=== PATIENT | female | born 1970 | race Caucasian/White ===

== ENCOUNTER 2017-06-21 03:53 | Outpatient (CLI) | payer MEDICARE ==
[~2017-06-21 03:53] MED LIST: ALBU8HFA PO; ALPR0.5T8 PO; ATOR10TA70 PO; IPRA3AMP IH; LEVO175T2 PO; LISI-600 PO; LITH300C PO; OMEP20TA5 PO; QUET-1 PO
== END 2017-06-21 23:59 | disposition home or self-care (01) ==
LOC: DIABETIC 03:53
PROVIDERS: ATTEND Nurse Practitioner Family
DX: E11.9 Type 2 diabetes mellitus without complications (principal); E66.01 Morbid (severe) obesity due to excess calories; J45.909 Unspecified asthma, uncomplicated; I10 Essential (primary) hypertension; J34.89 Other specified disorders of nose and nasal sinuses; J32.9 Chronic sinusitis, unspecified; M54.2 Cervicalgia; R41.0 Disorientation, unspecified; I49.9 Cardiac arrhythmia, unspecified; F31.9 Bipolar disorder, unspecified; R05 Cough; R50.9 Fever, unspecified; R11.0 Nausea; K76.89 Other specified diseases of liver; M54.9 Dorsalgia, unspecified; Z79.891 Long term (current) use of opiate analgesic
CPT/HCPCS: G0109

== ENCOUNTER 2017-08-30 00:14 | Outpatient (CLI) | payer MEDICARE | END 2017-08-30 23:59 | disposition home or self-care (01) | LOC: DIABETIC 00:14 | PROVIDERS: ATTEND Nurse Practitioner Family | DX: E11.9 Type 2 diabetes mellitus without complications (principal) | CPT/HCPCS: G0108 ==

== ENCOUNTER 2017-12-06 12:47 | Emergency (ER) | payer MEDICARE, OTHER ==
[~2017-12-06] VITALS: Ht 170.2 cm; Wt 146.8 kg
[~2017-12-06 12:47] MED LIST changes: +ADV50500 INH; +CODE120S2 PO; +METH4TAB81 PO
[2017-12-06] MEDS ORDERED: morphine 4 MG/ML inj SYRINge IV PRN (13:15)
[2017-12-06] MEDS ORDERED: albuterol 2.5 MG/3 ML nebule NEB ONE (13:15)
[2017-12-06] MEDS ORDERED: normal saline 1000ML IV soln IVB ONE (13:15)
[2017-12-06] MEDS ORDERED: ipratropium/albuterol 3ml nebule NEB ONE (13:15)
[2017-12-06] MEDS ORDERED: proCHLORperazine 10 MG/2 ml inj IV ONE (13:15)
[2017-12-06 13:32] LABS: BASOPHILS % (AUTO) 0.2 % (0-1); EOSINOPHILS # (AUTO) 0.2 X10'3 (0-0.9); HEMATOCRIT 38.5 % (35.0-45.0); HEMOGLOBIN 12.9 g/dl (12.0-16.0); LYMPHOCYTES # (AUTO) 2.1 X10'3 (1.1-4.8); LYMPHOCYTES % (AUTO) 25.4 % (21-51); MEAN CORPUSCULAR HEMOGLOBIN 28.2 PG (27.0-31.0); MEAN CORPUSCULAR HGB CONC 33.5 % (33.0-36.5); MEAN PLATELET VOLUME 8.7 FL (7.4-10.4); MONOCYTES # (AUTO) 0.4 X10'3 (0-0.9); MONOCYTES % (AUTO) 4.9 % (2-12); NEUTROPHILS # (AUTO) 5.6 X10'3 (1.8-7.7); NEUTROPHILS % (AUTO) 67.5 % (42-75); PLATELET COUNT 316 X10'3 (140-440); RED BLOOD COUNT 4.59 X10'6 (4.20-5.60); WHITE BLOOD COUNT 8.3 X10'3 (4.5-11.0)
[2017-12-06 13:47] LABS: ALANINE AMINOTRANSFERASE 51 U/L (12-78); ALBUMIN 3.4 G/DL (3.4-5.0); ALBUMIN/GLOBULIN RATIO 0.8 (1.1-1.5); ALKALINE PHOSPHATASE 81 IU/L (46-116); ANION GAP 15 (8-16); ASPARTATE AMINO TRANSFERASE 31 U/L (10-37); BILIRUBIN,TOTAL 0.2 MG/DL (0.1-1.0); BLOOD UREA NITROGEN 17 MG/DL (7-18); BUN/CREATININE RATIO 18.5 (6.6-38.0); CALCIUM 9.8 MG/DL (8.5-10.1); CHLORIDE 106 MMOL/L (99-107); CREATININE 0.92 MG/DL (0.40-0.90); GLUCOSE 133 MG/DL (70-104); LIPASE 110 U/L (73-393); POTASSIUM 3.7 MMOL/L (3.5-5.1); SODIUM 141 MMOL/L (135-145); TOTAL CARBON DIOXIDE 20.2 MMOL/L (24-32); TOTAL PROTEIN 7.9 G/DL (6.4-8.2); eGFR 66 ML/MIN
[2017-12-06 13:53] LABS: ANISOCYTOSIS 1+; LARGE PLATELETS FEW; PLATELET ESTIMATE NORMAL; TOTAL CELLS COUNTED 100
[2017-12-06 14:58] VITALS: BP 142/78
[2017-12-06] MEDS ORDERED: metoclopramide 5 mg/ml inj IV ONE (15:00)
[2017-12-06] MEDS ORDERED: ketorolac trometh. 30mg/ml inj. IV ONE (15:00)
[2017-12-06 15:05] LABS: CLARITY,URINE CLOUDY (Clear); GLUCOSE, URINE NEGATIVE (Neg); KETONES,URINE 15 mg/dl (Neg); LEUKOCYTE ESTERASE ,URINE NEGATIVE (Neg); NITRITES, URINE NEGATIVE (Neg); OCCULT BLOOD,URINE NEGATIVE (Neg); PH,URINE 5.5 (4.8-8.0); PROTEIN,URINE 100 mg/dl (Neg)
[2017-12-06 15:07] LABS: UA COLLECTION TYPE CLN CATCH MIDSTREAM
[2017-12-06 15:08] LABS: COLOR,URINE DARK YELLOW (Yellow)
[2017-12-06 15:14] LABS: BACTERIA,URINE 1+ /HPF (Neg); MUCUS STRANDS MANY /LPF (Neg); RBC,URINE NONE SEEN /HPF (0-2); SQUAMOUS EPITHELIAL CELL,UR MANY /LPF (FEW); WBC,URINE 0-4 /HPF (0-4)
[2017-12-06 15:15] LABS: AMORPHOUS URATES 1+; CAL OXALATE CRYSTALS 4+ /HPF (NEGATIVE)
[2017-12-06 15:16] LABS: HYALINE CASTS 0-3 /LPF (NEGATIVE)
[2017-12-06] MEDS ORDERED: METO-292 PO (15:47)
== END 2017-12-06 16:05 | disposition home or self-care (01) ==
LOC: ER 12:47
DX: R10.9 Unspecified abdominal pain (principal); I10 Essential (primary) hypertension; J45.909 Unspecified asthma, uncomplicated; E11.9 Type 2 diabetes mellitus without complications; K56.7 Ileus, unspecified; Z79.899 Other long term (current) drug therapy; Z56.0 Unemployment, unspecified; Z88.8 Allergy status to other drugs, medicaments and biological substances
CPT/HCPCS: 36415; 74176; 80053; 81001; 82948; 83690; 85025; 94640; 94760; 96361; 96374; 96375; 99285; J0780; J1885; J2270; J2765; J7030

== ENCOUNTER 2018-02-08 15:04 | Emergency (ER) | payer MEDICARE ==
[~2018-02-08] VITALS: Ht 170.2 cm; Wt 146.0 kg
[~2018-02-08 15:04] MED LIST changes: -IPRA3AMP IH; +IPRA3AMP31 IH; +METO-292 PO
[2018-02-08] MEDS ORDERED: LORazepam 0.5 MG tablet PO PRN (16:55)
[2018-02-08 17:17] LABS: BASOPHILS % (AUTO) 0.2 % (0-1); EOSINOPHILS # (AUTO) 0.1 X10'3 (0-0.9); EOSINOPHILS % (AUTO) 1.4 % (0-6); HEMATOCRIT 34.9 % (35.0-45.0); HEMOGLOBIN 11.4 g/dl (12.0-16.0); LYMPHOCYTES # (AUTO) 2.7 X10'3 (1.1-4.8); LYMPHOCYTES % (AUTO) 36.5 % (21-51); MEAN CORPUSCULAR HEMOGLOBIN 27.9 PG (27.0-31.0); MEAN CORPUSCULAR HGB CONC 32.7 % (33.0-36.5); MEAN CORPUSCULAR VOLUME 85.3 FL (78-98); MEAN PLATELET VOLUME 8.6 FL (7.4-10.4); MONOCYTES # (AUTO) 0.5 X10'3 (0-0.9); MONOCYTES % (AUTO) 6.8 % (2-12); NEUTROPHILS # (AUTO) 4.1 X10'3 (1.8-7.7); NEUTROPHILS % (AUTO) 55.1 % (42-75); PLATELET COUNT 302 X10'3 (140-440); RED BLOOD COUNT 4.09 X10'6 (4.20-5.60); RED CELL DISTRIBUTION WIDTH 15.1 % (11.5-14.5); WHITE BLOOD COUNT 7.4 X10'3 (4.5-11.0)
[2018-02-08] MEDS ORDERED: OXCA300T PO (17:20)
[2018-02-08] MEDS ORDERED: ONDA8TAB9 PO (17:20)
[2018-02-08] MEDS ORDERED: ALPR-624 PO ×2 (17:20→19:02)
[2018-02-08] MEDS ORDERED: OXCA600T PO (17:20)
[2018-02-08] MEDS ORDERED: QUET50TA PO (17:20)
[2018-02-08] MEDS ORDERED: TOPI50TA24 PO (17:20)
[2018-02-08] MEDS ORDERED: HYDR-3566 PO (17:20)
[2018-02-08] MEDS ORDERED: METF500T PO (17:20)
[2018-02-08] MEDS ORDERED: QUET300T2 PO (17:20)
[2018-02-08] MEDS ORDERED: CLON-371 PO (17:20)
[2018-02-08] MEDS ORDERED: LISI40TA4 PO (17:20)
[2018-02-08] MEDS ORDERED: LEVO100T PO (17:20)
[2018-02-08 17:33] LABS: ALANINE AMINOTRANSFERASE 29 U/L (12-78); ALBUMIN 2.9 G/DL (3.4-5.0); ALBUMIN/GLOBULIN RATIO 0.8 (1.1-1.5); ALKALINE PHOSPHATASE 66 IU/L (46-116); ANION GAP 10 (8-16); ASPARTATE AMINO TRANSFERASE 21 U/L (10-37); BILIRUBIN,TOTAL 0.1 MG/DL (0.1-1.0); BLOOD UREA NITROGEN 8 MG/DL (7-18); BUN/CREATININE RATIO 10.3 (6.6-38.0); CALCIUM 8.2 MG/DL (8.5-10.1); CHLORIDE 111 MMOL/L (99-107); CREATININE 0.78 MG/DL (0.40-0.90); GLUCOSE 106 MG/DL (70-104); POTASSIUM 3.4 MMOL/L (3.5-5.1); SODIUM 143 MMOL/L (135-145); TOTAL CARBON DIOXIDE 22.2 MMOL/L (24-32); TOTAL PROTEIN 6.4 G/DL (6.4-8.2); eGFR 79 ML/MIN
[2018-02-08 17:39] LABS: CLARITY,URINE CLOUDY (Clear); COLOR,URINE YELLOW (Yellow); GLUCOSE, URINE NEGATIVE (Neg); KETONES,URINE NEGATIVE (Neg); LEUKOCYTE ESTERASE ,URINE TRACE (Neg); NITRITES, URINE NEGATIVE (Neg); OCCULT BLOOD,URINE NEGATIVE (Neg); PROTEIN,URINE NEGATIVE (Neg); UROBILINOGEN,URINE 0.2 E.U/dL (0.2-1.0)
[2018-02-08 17:43] LABS: ETHANOL < 0.010 GM/DL (0.0-0.010)
[2018-02-08 17:43] LABS: URINE HCG NEGATIVE (NEG)
[2018-02-08 17:44] LABS: URINE AMPHETAMINE SCREEN NEGATIVE (Neg); URINE BARBITUATE SCREEN NEGATIVE (Neg); URINE BENZODIAZEPINES SCREEN POSITIVE (Neg); URINE CANNABINOID SCREEN POSITIVE (Neg); URINE COCAINE SCREEN NEGATIVE (Neg); URINE METHADONE SCREEN NEGATIVE (Neg); URINE OPIATE SCREEN NEGATIVE (Neg); URINE PHENCYCLIDINE SCREEN NEGATIVE (Neg)
[2018-02-08 17:51] LABS: UA COLLECTION TYPE CLN CATCH MIDSTREAM
[2018-02-08 17:52] LABS: BACTERIA,URINE 1+ /HPF (Neg); MUCUS STRANDS MODERATE /LPF (Neg); SQUAMOUS EPITHELIAL CELL,UR MANY /LPF (FEW)
[2018-02-08 17:53] LABS: RBC,URINE 0-2 /HPF (0-2); WBC,URINE 0-4 /HPF (0-4)
[2018-02-08] MEDS ORDERED: ALPRAZolam 0.5mg tablet PO PRN (20:45)
[2018-02-08] MEDS ORDERED: HYDROcodone/acetaminophen 5mg/325mg tablet PO PRN (20:50)
[2018-02-08] MEDS ORDERED: ondansetron 4mg rapidly disintigrating tab PO PRN (20:50)
[2018-02-08] MEDS ORDERED: quetiapine 100mg tablet PO SCH (21:00)
[2018-02-08] MEDS ORDERED: QUEtiapine 25mg tablet PO PRN (21:00)
[2018-02-08] MEDS ORDERED: oxcarbazepine 150mg tablet PO SCH (21:00)
[2018-02-08] MEDS ORDERED: albuterol 2.5 MG/3 ML nebule NEB PRN (21:05)
[2018-02-08] MEDS: clonazePAM 1mg tablet PO SCH (21:22)
[2018-02-09] MEDS ORDERED: levoTHYROXINE 100mcg tablet PO SCH (07:00)
[2018-02-09] MEDS ORDERED: ipratropium/albuterol 3ml nebule IH SCH (07:00)
[2018-02-09] MEDS ORDERED: pantoprazole 40mg Tablet.DR PO SCH (07:30)
[2018-02-09] MEDS: oxcarbazepine 150mg tablet PO SCH ×2 (07:43→17:35)
[2018-02-09] MEDS: clonazePAM 1mg tablet PO SCH ×2 (07:44→13:20)
[2018-02-09] MEDS ORDERED: atorvastatin 10mg tablet PO SCH (08:00)
[2018-02-09] MEDS ORDERED: topiramate 100mg tablet PO SCH (08:00)
[2018-02-09] MEDS ORDERED: oxcarbazepine 150mg tablet PO SCH (08:00)
[2018-02-09] MEDS ORDERED: lisinopril 20mg tablet PO SCH (08:00)
[2018-02-09] MEDS ORDERED: metFORMIN 500mg tablet PO SCH (08:00)
[2018-02-09 17:45] VITALS: BP 146/85
== END 2018-02-09 18:47 ==
LOC: ER 15:05
DX: F31.9 Bipolar disorder, unspecified (principal); I10 Essential (primary) hypertension; E11.9 Type 2 diabetes mellitus without complications; J45.909 Unspecified asthma, uncomplicated; Z86.73 Personal history of transient ischemic attack (TIA), and cerebral infarction without residual deficits; Z88.8 Allergy status to other drugs, medicaments and biological substances
CPT/HCPCS: 36415; 80053; 80178; 80305; 80320; 81001; 81025; 84443; 85025; 94640; 94760; 99285

== ENCOUNTER 2018-02-09 13:11 | Inpatient (IN) | payer MEDICARE, OTHER ==
[~2018-02-09] VITALS: Ht 170.2 cm; Wt 147.2 kg
[~2018-02-09 13:11] MED LIST changes: -ADV50500 INH; +ALPR-624 PO; -ALPR0.5T8 PO; +CLON-371 PO; -CODE120S2 PO; +HYDR-3566 PO; +LEVO100T PO; -LEVO175T2 PO; -LISI-600 PO; +LISI40TA4 PO; -LITH300C PO; +METF500T PO; -METH4TAB81 PO; -METO-292 PO; +ONDA8TAB9 PO; +OXCA300T16 PO; +OXCA600T9 PO; -QUET-1 PO; +QUET300T2 PO; +QUET50TA PO; +TOPI50TA24 PO
[2018-02-09] MEDS ORDERED: magnesium hydroxide 30ml (MOM) UD suspension PO PRN (19:40)
[2018-02-09] MEDS ORDERED: mag hydrox/Alum hydrox/simeth 30ml oral suspension PO PRN (19:40)
[2018-02-09] MEDS ORDERED: acetaminophen 325mg tablet PO PRN ×2 (19:40)
[2018-02-09] MEDS ORDERED: albuterol 2.5 MG/3 ML nebule NEB PRN (20:10)
[2018-02-09 20:18] VITALS: BP 182/108
[2018-02-09] MEDS ORDERED: oxcarbazepine 150mg tablet PO SCH (21:00)
[2018-02-09] MEDS: quetiapine 100mg tablet PO SCH (21:48)
[2018-02-09] MEDS: clonazePAM 1mg tablet PO SCH (21:49)
[2018-02-09] MEDS: zolpidem 5mg tablet PO PRN (21:49)
[2018-02-09] MEDS: HYDROcodone/acetaminophen 5mg/325mg tablet PO PRN (21:57)
[2018-02-10] MEDS: levoTHYROXINE 100mcg tablet PO SCH (07:14)
[2018-02-10] MEDS ORDERED: oxcarbazepine 150mg tablet PO SCH (07:30)
[2018-02-10 08:00] VITALS: BP 179/100
[2018-02-10 08:00] LABS: CHOL/HDL RATIO 2.5 (0.00-4.99); CHOLESTEROL 197 MG/DL (0-200); HDL CHOLESTEROL 78 MG/DL (35-60); LDL CHOLESTEROL 100 MG/DL (50-100); TRIGLYCERIDES 179 MG/DL (20-135)
[2018-02-10] MEDS ORDERED: topiramate 25mg tablet PO SCH (08:00)
[2018-02-10] MEDS: clonazePAM 1mg tablet PO SCH ×3 (08:20→21:07)
[2018-02-10] MEDS: lisinopril 20mg tablet PO SCH (08:21)
[2018-02-10] MEDS: pantoprazole 40mg Tablet.DR PO SCH (08:21)
[2018-02-10] MEDS: atorvastatin 10mg tablet PO SCH (08:21)
[2018-02-10] MEDS: metFORMIN 500mg tablet PO SCH ×2 (08:21→19:18)
[2018-02-10] MEDS ORDERED: albuterol 2.5 MG/3 ML nebule NEB PRN (10:55)
[2018-02-10] MEDS ORDERED: mag hydrox/Alum hydrox/simeth 30ml oral suspension PO PRN (11:05)
[2018-02-10] MEDS ORDERED: ondansetron/PF 4mg/2ml inj IV PRN (11:05)
[2018-02-10] MEDS ORDERED: acetaminophen 325mg tablet PO PRN ×2 (11:05)
[2018-02-10] MEDS ORDERED: diphenhydrAMINE 50 mg/ml inj IV PRN (11:05)
[2018-02-10] MEDS ORDERED: HYDROcodone/acetaminophen 10/325mg tab PO PRN (11:05)
[2018-02-10] MEDS ORDERED: diphenhydrAMINE 25mg capsule PO PRN (11:05)
[2018-02-10] MEDS ORDERED: metoclopramide 5 mg/ml inj IV PRN (11:05)
[2018-02-10] MEDS ORDERED: HYDROcodone/acetaminophen 5mg/325mg tablet PO PRN (11:05)
[2018-02-10] MEDS ORDERED: HYDROmorphone inj. 0.5 MG/0.5 ML DISP.SYRIN IV PRN ×2 (11:05)
[2018-02-10] MEDS ORDERED: acetaminophen 650mg rectal suppository RC PRN (11:05)
[2018-02-10] MEDS ORDERED: bisacodyl 10mg suppository rectal RC PRN (11:05)
[2018-02-10] MEDS ORDERED: morphine 4 MG/ML inj SYRINge IV PRN ×2 (11:05)
[2018-02-10] MEDS ORDERED: venlafaxine 37.5mg tablet PO ONE (11:10)
[2018-02-10 12:48] LABS: LIPASE 197 U/L (73-393)
[2018-02-10 12:52] LABS: CARBAMAZEPINE (TEGRETOL) < 0.5 UG/ML (4.0-12.0)
[2018-02-10] MEDS: ipratropium/albuterol 3ml nebule IH SCH (19:00)
[2018-02-10] MEDS: ALPRAZolam 0.5mg tablet PO PRN (19:19)
[2018-02-10 19:44] VITALS: BP 168/110
[2018-02-10] MEDS ORDERED: temazepam 15mg capsule PO PRN (21:00)
[2018-02-10] MEDS: docusate sod 100mg capsule PO SCH (21:05)
[2018-02-10] MEDS: quetiapine 100mg tablet PO SCH (21:06)
[2018-02-10] MEDS: topiramate 25mg tablet PO SCH (21:06)
[2018-02-10] MEDS: oxcarbazepine 150mg tablet PO SCH (21:07)
[2018-02-10] MEDS: zolpidem 5mg tablet PO PRN (21:07)
[2018-02-10] MEDS: famotidine 20mg tablet PO SCH (21:08)
[2018-02-11] MEDS: ipratropium/albuterol 3ml nebule IH SCH ×4 (07:00→19:00)
[2018-02-11 07:28] VITALS: BP 141/94
[2018-02-11] MEDS: lisinopril 20mg tablet PO SCH (07:32)
[2018-02-11] MEDS: levoTHYROXINE 100mcg tablet PO SCH (07:32)
[2018-02-11] MEDS: clonazePAM 1mg tablet PO SCH ×3 (07:32→20:35)
[2018-02-11] MEDS: QUEtiapine 25mg tablet PO SCH ×2 (07:32→14:13)
[2018-02-11] MEDS: quetiapine 100mg tablet PO SCH ×3 (07:32→20:35)
[2018-02-11] MEDS: metFORMIN 500mg tablet PO SCH ×2 (07:32→17:22)
[2018-02-11] MEDS: topiramate 25mg tablet PO SCH ×2 (07:33→20:34)
[2018-02-11] MEDS: atorvastatin 10mg tablet PO SCH (07:33)
[2018-02-11] MEDS: docusate sod 100mg capsule PO SCH ×2 (07:33→20:34)
[2018-02-11] MEDS: pantoprazole 40mg Tablet.DR PO SCH (07:33)
[2018-02-11] MEDS ORDERED: venlafaxine 37.5mg tablet PO SCH (08:00)
[2018-02-11] MEDS: oxcarbazepine 150mg tablet PO SCH ×2 (08:53→20:35)
[2018-02-11] MEDS: HYDROcodone/acetaminophen 5mg/325mg tablet PO PRN (17:24)
[2018-02-11 20:00] VITALS: BP 132/90
[2018-02-11] MEDS: famotidine 20mg tablet PO SCH (20:34)
[2018-02-11] MEDS: zolpidem 5mg tablet PO PRN (20:35)
[2018-02-12] MEDS: ipratropium/albuterol 3ml nebule IH SCH ×4 (07:00→19:00)
[2018-02-12 08:30] VITALS: BP 130/84
[2018-02-12] MEDS: metFORMIN 500mg tablet PO SCH ×2 (08:50→17:45)
[2018-02-12] MEDS: quetiapine 100mg tablet PO SCH ×3 (08:51→20:46)
[2018-02-12] MEDS: pantoprazole 40mg Tablet.DR PO SCH (08:51)
[2018-02-12] MEDS: clonazePAM 1mg tablet PO SCH ×3 (08:51→20:47)
[2018-02-12] MEDS: levoTHYROXINE 100mcg tablet PO SCH (08:51)
[2018-02-12] MEDS: QUEtiapine 25mg tablet PO SCH ×2 (08:51→13:49)
[2018-02-12] MEDS: atorvastatin 10mg tablet PO SCH (08:52)
[2018-02-12] MEDS: topiramate 25mg tablet PO SCH ×2 (08:52→20:47)
[2018-02-12] MEDS: docusate sod 100mg capsule PO SCH ×2 (08:53→20:47)
[2018-02-12] MEDS: lisinopril 20mg tablet PO SCH (09:10)
[2018-02-12] MEDS: venlafaxine 37.5mg tablet PO SCH (09:11)
[2018-02-12] MEDS: oxcarbazepine 150mg tablet PO SCH ×2 (09:35→20:47)
[2018-02-12] MEDS: HYDROcodone/acetaminophen 5mg/325mg tablet PO PRN ×2 (11:59→19:08)
[2018-02-12] MEDS: nystatin 15 GM powder TP SCH ×2 (16:14→20:47)
[2018-02-12 20:00] VITALS: BP 154/83
[2018-02-12] MEDS: famotidine 20mg tablet PO SCH (20:47)
[2018-02-12] MEDS: zolpidem 5mg tablet PO PRN (21:45)
[2018-02-13] MEDS: ipratropium/albuterol 3ml nebule IH SCH ×4 (07:00→21:16)
[2018-02-13] MEDS: levoTHYROXINE 100mcg tablet PO SCH (07:48)
[2018-02-13] MEDS: venlafaxine 37.5mg tablet PO SCH (07:48)
[2018-02-13] MEDS: atorvastatin 10mg tablet PO SCH (07:48)
[2018-02-13] MEDS: pantoprazole 40mg Tablet.DR PO SCH (07:48)
[2018-02-13] MEDS: clonazePAM 1mg tablet PO SCH ×3 (07:48→21:26)
[2018-02-13] MEDS: metFORMIN 500mg tablet PO SCH ×2 (07:49→17:41)
[2018-02-13] MEDS: QUEtiapine 25mg tablet PO SCH ×2 (07:49→13:42)
[2018-02-13] MEDS: docusate sod 100mg capsule PO SCH ×2 (07:49→21:37)
[2018-02-13] MEDS: topiramate 25mg tablet PO SCH ×2 (07:49→21:36)
[2018-02-13] MEDS: oxcarbazepine 150mg tablet PO SCH ×2 (07:49→21:36)
[2018-02-13] MEDS: quetiapine 100mg tablet PO SCH ×3 (07:49→21:27)
[2018-02-13 08:00] VITALS: BP 163/79
[2018-02-13] MEDS: lisinopril 20mg tablet PO SCH (08:43)
[2018-02-13] MEDS: HYDROcodone/acetaminophen 5mg/325mg tablet PO PRN ×2 (08:43→17:55)
[2018-02-13] MEDS: nystatin 15 GM powder TP SCH ×3 (08:45→21:39)
[2018-02-13] MEDS: ALPRAZolam 0.5mg tablet PO PRN (16:48)
[2018-02-13 19:40] VITALS: BP_SYST 138
[2018-02-13] MEDS: zolpidem 5mg tablet PO PRN (21:26)
[2018-02-13] MEDS: famotidine 20mg tablet PO SCH (21:37)
[2018-02-14] MEDS: ipratropium/albuterol 3ml nebule IH SCH ×4 (07:00→20:14)
[2018-02-14] MEDS: metFORMIN 500mg tablet PO SCH ×2 (07:53→17:51)
[2018-02-14] MEDS: levoTHYROXINE 100mcg tablet PO SCH (07:53)
[2018-02-14] MEDS: clonazePAM 1mg tablet PO SCH ×3 (07:54→20:39)
[2018-02-14] MEDS: venlafaxine 37.5mg tablet PO SCH (07:54)
[2018-02-14] MEDS: docusate sod 100mg capsule PO SCH ×2 (07:55→19:51)
[2018-02-14] MEDS: QUEtiapine 25mg tablet PO SCH ×2 (07:55→14:54)
[2018-02-14] MEDS: oxcarbazepine 150mg tablet PO SCH ×2 (07:55→19:51)
[2018-02-14] MEDS: topiramate 25mg tablet PO SCH ×2 (07:55→19:52)
[2018-02-14] MEDS: lisinopril 20mg tablet PO SCH (07:55)
[2018-02-14] MEDS: atorvastatin 10mg tablet PO SCH (07:55)
[2018-02-14] MEDS: pantoprazole 40mg Tablet.DR PO SCH (07:55)
[2018-02-14] MEDS: quetiapine 100mg tablet PO SCH ×3 (07:55→20:38)
[2018-02-14] MEDS: nystatin 15 GM powder TP SCH ×3 (08:00→20:41)
[2018-02-14 08:54] VITALS: BP 157/91
[2018-02-14] MEDS: ondansetron 4mg rapidly disintigrating tab PO PRN (09:38)
[2018-02-14] MEDS: HYDROcodone/acetaminophen 5mg/325mg tablet PO PRN ×2 (12:39→20:37)
[2018-02-14] MEDS: ALPRAZolam 0.5mg tablet PO PRN (19:51)
[2018-02-14 20:00] VITALS: BP 115/83
[2018-02-14] MEDS: famotidine 20mg tablet PO SCH (20:39)
[2018-02-14] MEDS: zolpidem 5mg tablet PO SCH (20:39)
[2018-02-15] MEDS: ipratropium/albuterol 3ml nebule IH SCH ×4 (07:00→19:00)
[2018-02-15] MEDS: metFORMIN 500mg tablet PO SCH ×2 (07:47→17:46)
[2018-02-15] MEDS: pantoprazole 40mg Tablet.DR PO SCH (07:47)
[2018-02-15] MEDS: levoTHYROXINE 100mcg tablet PO SCH (07:47)
[2018-02-15 08:15] VITALS: BP 127/94
[2018-02-15] MEDS: docusate sod 100mg capsule PO SCH ×2 (08:37→20:37)
[2018-02-15] MEDS: venlafaxine 37.5mg tablet PO SCH (08:38)
[2018-02-15] MEDS: clonazePAM 1mg tablet PO SCH ×3 (08:38→20:38)
[2018-02-15] MEDS: atorvastatin 10mg tablet PO SCH (08:38)
[2018-02-15] MEDS: QUEtiapine 25mg tablet PO SCH ×2 (08:39→13:47)
[2018-02-15] MEDS: quetiapine 100mg tablet PO SCH ×3 (08:39→20:39)
[2018-02-15] MEDS: lisinopril 20mg tablet PO SCH (08:40)
[2018-02-15] MEDS: nystatin 15 GM powder TP SCH ×3 (08:40→20:38)
[2018-02-15] MEDS: topiramate 25mg tablet PO SCH ×2 (08:40→20:37)
[2018-02-15] MEDS: oxcarbazepine 150mg tablet PO SCH ×2 (08:40→20:38)
[2018-02-15] MEDS: HYDROcodone/acetaminophen 5mg/325mg tablet PO PRN ×2 (11:15→19:05)
[2018-02-15 20:00] VITALS: BP 141/88
[2018-02-15] MEDS: famotidine 20mg tablet PO SCH (20:38)
[2018-02-15] MEDS: zolpidem 5mg tablet PO SCH (20:38)
[2018-02-16] MEDS: ipratropium/albuterol 3ml nebule IH SCH ×4 (07:00→19:00)
[2018-02-16] MEDS: metFORMIN 500mg tablet PO SCH ×2 (07:51→18:30)
[2018-02-16] MEDS: levoTHYROXINE 100mcg tablet PO SCH (07:51)
[2018-02-16] MEDS: atorvastatin 10mg tablet PO SCH (07:51)
[2018-02-16] MEDS: venlafaxine 37.5mg tablet PO SCH (07:51)
[2018-02-16] MEDS: QUEtiapine 25mg tablet PO SCH ×2 (07:52→16:28)
[2018-02-16] MEDS: topiramate 25mg tablet PO SCH ×2 (07:52→22:06)
[2018-02-16] MEDS: quetiapine 100mg tablet PO SCH ×3 (07:52→22:04)
[2018-02-16] MEDS: oxcarbazepine 150mg tablet PO SCH ×2 (07:53→22:05)
[2018-02-16] MEDS: lisinopril 20mg tablet PO SCH (07:53)
[2018-02-16] MEDS: docusate sod 100mg capsule PO SCH ×2 (07:53→22:03)
[2018-02-16] MEDS: pantoprazole 40mg Tablet.DR PO SCH (07:53)
[2018-02-16] MEDS: clonazePAM 1mg tablet PO SCH ×3 (07:53→22:05)
[2018-02-16] MEDS: nystatin 15 GM powder TP SCH ×3 (07:54→21:00)
[2018-02-16 08:00] VITALS: BP 150/91
[2018-02-16] MEDS: magnesium hydroxide 30ml (MOM) UD suspension PO PRN (11:04)
[2018-02-16 19:47] VITALS: BP 163/97
[2018-02-16] MEDS: famotidine 20mg tablet PO SCH (22:05)
[2018-02-16] MEDS: zolpidem 5mg tablet PO SCH (22:05)
[2018-02-17] MEDS: ipratropium/albuterol 3ml nebule IH SCH ×4 (07:00→19:00)
[2018-02-17] MEDS: levoTHYROXINE 100mcg tablet PO SCH (07:29)
[2018-02-17] MEDS: metFORMIN 500mg tablet PO SCH ×2 (07:29→17:48)
[2018-02-17] MEDS: pantoprazole 40mg Tablet.DR PO SCH (07:29)
[2018-02-17 08:00] VITALS: BP 146/76
[2018-02-17] MEDS: nystatin 15 GM powder TP SCH ×3 (08:00→20:27)
[2018-02-17] MEDS: magnesium hydroxide 30ml (MOM) UD suspension PO PRN (08:11)
[2018-02-17] MEDS: HYDROcodone/acetaminophen 5mg/325mg tablet PO PRN ×2 (08:11→17:48)
[2018-02-17] MEDS: atorvastatin 10mg tablet PO SCH (08:11)
[2018-02-17] MEDS: docusate sod 100mg capsule PO SCH ×2 (08:11→20:25)
[2018-02-17] MEDS: clonazePAM 1mg tablet PO SCH ×3 (08:11→20:26)
[2018-02-17] MEDS: quetiapine 100mg tablet PO SCH ×3 (08:12→20:26)
[2018-02-17] MEDS: oxcarbazepine 150mg tablet PO SCH ×2 (08:12→20:25)
[2018-02-17] MEDS: venlafaxine 37.5mg tablet PO SCH (08:12)
[2018-02-17] MEDS: lisinopril 20mg tablet PO SCH (08:13)
[2018-02-17] MEDS: topiramate 25mg tablet PO SCH ×2 (08:14→20:26)
[2018-02-17] MEDS: QUEtiapine 25mg tablet PO SCH ×2 (08:14→13:30)
[2018-02-17] MEDS: ALPRAZolam 0.5mg tablet PO PRN (19:09)
[2018-02-17] MEDS ORDERED: bisacodyl 10mg suppository rectal RC PRN (19:30)
[2018-02-17] MEDS ORDERED: bisacodyl 5mg tablet.DR PO PRN (19:30)
[2018-02-17] MEDS ORDERED: ipratropium/albuterol 3ml nebule NEB PRN (19:45)
[2018-02-17 20:00] VITALS: BP 132/91
[2018-02-17] MEDS: zolpidem 5mg tablet PO SCH (20:26)
[2018-02-17] MEDS: famotidine 20mg tablet PO SCH (20:27)
[2018-02-18] MEDS: metFORMIN 500mg tablet PO SCH ×2 (07:16→17:37)
[2018-02-18] MEDS: levoTHYROXINE 100mcg tablet PO SCH (07:16)
[2018-02-18 07:51] VITALS: BP 143/87
[2018-02-18] MEDS: nystatin 15 GM powder TP SCH ×3 (08:02→21:37)
[2018-02-18] MEDS: pantoprazole 40mg Tablet.DR PO SCH (08:03)
[2018-02-18] MEDS: atorvastatin 10mg tablet PO SCH (08:03)
[2018-02-18] MEDS: topiramate 25mg tablet PO SCH ×2 (08:03→21:39)
[2018-02-18] MEDS: docusate sod 100mg capsule PO SCH (08:03)
[2018-02-18] MEDS: oxcarbazepine 150mg tablet PO SCH ×2 (08:03→21:40)
[2018-02-18] MEDS: venlafaxine 37.5mg tablet PO SCH (08:04)
[2018-02-18] MEDS: clonazePAM 1mg tablet PO SCH ×3 (08:04→21:39)
[2018-02-18] MEDS: QUEtiapine 25mg tablet PO SCH ×2 (08:04→15:07)
[2018-02-18] MEDS: quetiapine 100mg tablet PO SCH ×3 (08:04→21:44)
[2018-02-18] MEDS: lisinopril 20mg tablet PO SCH (08:04)
[2018-02-18] MEDS ORDERED: venlafaxine XR 75mg capsule (Q24H) PO ONE (09:10)
[2018-02-18] MEDS: ALPRAZolam 0.5mg tablet PO PRN (10:19)
[2018-02-18] MEDS: HYDROcodone/acetaminophen 5mg/325mg tablet PO PRN (12:46)
[2018-02-18] MEDS: magnesium hydroxide 30ml (MOM) UD suspension PO PRN ×2 (16:23→21:42)
[2018-02-18 19:57] VITALS: BP 123/68
[2018-02-18] MEDS ORDERED: docusate sod 100mg capsule PO SCH (20:00)
[2018-02-18] MEDS: famotidine 20mg tablet PO SCH (21:38)
[2018-02-18] MEDS: zolpidem 5mg tablet PO SCH (21:38)
[2018-02-18] MEDS: docusate sod 250mg capsule PO SCH (21:41)
[2018-02-19] MEDS: levoTHYROXINE 100mcg tablet PO SCH (07:46)
[2018-02-19] MEDS: metFORMIN 500mg tablet PO SCH ×2 (07:46→17:39)
[2018-02-19] MEDS: pantoprazole 40mg Tablet.DR PO SCH (07:46)
[2018-02-19 08:00] VITALS: BP 142/92
[2018-02-19] MEDS: nystatin 15 GM powder TP SCH ×3 (08:00→20:34)
[2018-02-19] MEDS: docusate sod 250mg capsule PO SCH ×2 (08:53→20:33)
[2018-02-19] MEDS: venlafaxine 37.5mg tablet PO SCH (08:53)
[2018-02-19] MEDS: quetiapine 100mg tablet PO SCH ×3 (08:54→20:33)
[2018-02-19] MEDS: atorvastatin 10mg tablet PO SCH (08:54)
[2018-02-19] MEDS: clonazePAM 1mg tablet PO SCH ×3 (08:54→20:33)
[2018-02-19] MEDS: lisinopril 20mg tablet PO SCH (08:54)
[2018-02-19] MEDS: QUEtiapine 25mg tablet PO SCH ×2 (08:54→13:23)
[2018-02-19] MEDS: topiramate 25mg tablet PO SCH ×2 (08:55→20:34)
[2018-02-19] MEDS: oxcarbazepine 150mg tablet PO SCH ×2 (10:11→20:34)
[2018-02-19] MEDS: HYDROcodone/acetaminophen 5mg/325mg tablet PO PRN (12:43)
[2018-02-19] MEDS ORDERED: bisacodyl 10mg suppository rectal RC PRN (19:00)
[2018-02-19 19:42] VITALS: BP 141/90
[2018-02-19] MEDS: zolpidem 5mg tablet PO SCH (20:33)
[2018-02-19] MEDS: famotidine 20mg tablet PO SCH (20:33)
[2018-02-19] MEDS: magnesium hydroxide 30ml (MOM) UD suspension PO PRN (20:34)
[2018-02-20] MEDS: pantoprazole 40mg Tablet.DR PO SCH (07:24)
[2018-02-20] MEDS: levoTHYROXINE 100mcg tablet PO SCH (07:24)
[2018-02-20] MEDS: metFORMIN 500mg tablet PO SCH ×2 (07:25→17:06)
[2018-02-20 08:00] VITALS: BP 139/68
[2018-02-20] MEDS: nystatin 15 GM powder TP SCH ×3 (08:00→21:00)
[2018-02-20] MEDS: quetiapine 100mg tablet PO SCH ×3 (10:25→20:56)
[2018-02-20] MEDS: lisinopril 20mg tablet PO SCH (10:25)
[2018-02-20] MEDS: QUEtiapine 25mg tablet PO SCH ×2 (10:25→13:48)
[2018-02-20] MEDS: venlafaxine 37.5mg tablet PO SCH (10:26)
[2018-02-20] MEDS: clonazePAM 1mg tablet PO SCH ×3 (10:26→20:55)
[2018-02-20] MEDS: oxcarbazepine 150mg tablet PO SCH ×2 (10:26→20:57)
[2018-02-20] MEDS: docusate sod 250mg capsule PO SCH ×2 (10:26→20:56)
[2018-02-20] MEDS: atorvastatin 10mg tablet PO SCH (10:26)
[2018-02-20] MEDS: topiramate 25mg tablet PO SCH ×2 (10:29→20:58)
[2018-02-20] MEDS: HYDROcodone/acetaminophen 5mg/325mg tablet PO PRN ×2 (12:12→21:00)
[2018-02-20] MEDS: ALPRAZolam 0.5mg tablet PO PRN (17:06)
[2018-02-20 20:00] VITALS: BP 149/76
[2018-02-20] MEDS: famotidine 20mg tablet PO SCH (20:55)
[2018-02-20] MEDS: zolpidem 5mg tablet PO SCH (20:56)
[2018-02-21] MEDS: metFORMIN 500mg tablet PO SCH ×2 (07:41→17:45)
[2018-02-21] MEDS: pantoprazole 40mg Tablet.DR PO SCH (07:41)
[2018-02-21] MEDS: levoTHYROXINE 100mcg tablet PO SCH (07:41)
[2018-02-21 08:22] VITALS: BP 150/85
[2018-02-21] MEDS: docusate sod 250mg capsule PO SCH ×2 (08:36→20:14)
[2018-02-21] MEDS: venlafaxine 37.5mg tablet PO SCH (08:37)
[2018-02-21] MEDS: atorvastatin 10mg tablet PO SCH (08:37)
[2018-02-21] MEDS: quetiapine 100mg tablet PO SCH ×3 (08:37→20:16)
[2018-02-21] MEDS: clonazePAM 1mg tablet PO SCH ×3 (08:37→20:15)
[2018-02-21] MEDS: QUEtiapine 25mg tablet PO SCH ×2 (08:38→13:14)
[2018-02-21] MEDS: lisinopril 20mg tablet PO SCH (08:39)
[2018-02-21] MEDS: nystatin 15 GM powder TP SCH ×3 (08:39→20:16)
[2018-02-21] MEDS: oxcarbazepine 150mg tablet PO SCH ×2 (08:39→20:15)
[2018-02-21] MEDS: topiramate 25mg tablet PO SCH ×2 (08:39→20:14)
[2018-02-21] MEDS: ondansetron 4mg rapidly disintigrating tab PO PRN (10:41)
[2018-02-21] MEDS: ALPRAZolam 0.5mg tablet PO PRN (13:13)
[2018-02-21 19:35] VITALS: BP 143/76
[2018-02-21] MEDS: famotidine 20mg tablet PO SCH (20:15)
[2018-02-21] MEDS: zolpidem 5mg tablet PO SCH (20:15)
[2018-02-21] MEDS: HYDROcodone/acetaminophen 5mg/325mg tablet PO PRN (20:17)
[2018-02-22] MEDS: docusate sod 250mg capsule PO SCH ×2 (08:00→21:36)
[2018-02-22] MEDS: nystatin 15 GM powder TP SCH ×3 (08:00→21:38)
[2018-02-22] MEDS: quetiapine 100mg tablet PO SCH ×3 (08:15→21:38)
[2018-02-22] MEDS: lisinopril 20mg tablet PO SCH (08:16)
[2018-02-22] MEDS: clonazePAM 1mg tablet PO SCH ×3 (08:16→21:37)
[2018-02-22] MEDS: topiramate 25mg tablet PO SCH ×2 (08:17→21:37)
[2018-02-22] MEDS: venlafaxine 37.5mg tablet PO SCH (08:18)
[2018-02-22] MEDS: oxcarbazepine 150mg tablet PO SCH ×2 (08:19→21:37)
[2018-02-22] MEDS: pantoprazole 40mg Tablet.DR PO SCH (08:20)
[2018-02-22] MEDS: atorvastatin 10mg tablet PO SCH (08:21)
[2018-02-22] MEDS: levoTHYROXINE 100mcg tablet PO SCH (08:21)
[2018-02-22] MEDS: QUEtiapine 25mg tablet PO SCH ×2 (08:21→16:08)
[2018-02-22] MEDS: metFORMIN 500mg tablet PO SCH ×2 (08:21→17:44)
[2018-02-22 08:49] VITALS: BP 132/87
[2018-02-22] MEDS: HYDROcodone/acetaminophen 5mg/325mg tablet PO PRN (12:23)
[2018-02-22] MEDS: ALPRAZolam 0.5mg tablet PO PRN (16:09)
[2018-02-22 19:37] VITALS: BP 121/62
[2018-02-22] MEDS: famotidine 20mg tablet PO SCH (21:37)
[2018-02-22] MEDS: zolpidem 5mg tablet PO SCH (21:37)
[2018-02-23] MEDS: clonazePAM 1mg tablet PO SCH ×3 (07:25→21:35)
[2018-02-23] MEDS: oxcarbazepine 150mg tablet PO SCH ×2 (07:25→21:35)
[2018-02-23] MEDS: venlafaxine 37.5mg tablet PO SCH (07:26)
[2018-02-23] MEDS: lisinopril 20mg tablet PO SCH (07:26)
[2018-02-23] MEDS: atorvastatin 10mg tablet PO SCH (07:27)
[2018-02-23] MEDS: docusate sod 250mg capsule PO SCH ×2 (07:27→21:34)
[2018-02-23] MEDS: topiramate 25mg tablet PO SCH ×2 (07:27→21:34)
[2018-02-23] MEDS: QUEtiapine 25mg tablet PO SCH ×2 (07:27→13:04)
[2018-02-23] MEDS: levoTHYROXINE 100mcg tablet PO SCH (07:27)
[2018-02-23] MEDS: quetiapine 100mg tablet PO SCH ×3 (07:27→21:35)
[2018-02-23] MEDS: pantoprazole 40mg Tablet.DR PO SCH (07:27)
[2018-02-23] MEDS: metFORMIN 500mg tablet PO SCH ×2 (07:34→17:35)
[2018-02-23] MEDS: nystatin 15 GM powder TP SCH ×3 (08:00→21:36)
[2018-02-23 08:01] VITALS: BP 133/77
[2018-02-23] MEDS: HYDROcodone/acetaminophen 5mg/325mg tablet PO PRN (11:00)
[2018-02-23 19:47] VITALS: BP 137/65
[2018-02-23] MEDS: zolpidem 5mg tablet PO SCH (21:35)
[2018-02-23] MEDS: famotidine 20mg tablet PO SCH (21:35)
[2018-02-24] MEDS: venlafaxine 37.5mg tablet PO SCH (07:43)
[2018-02-24] MEDS: topiramate 25mg tablet PO SCH ×2 (07:43→20:49)
[2018-02-24] MEDS: oxcarbazepine 150mg tablet PO SCH ×2 (07:43→20:49)
[2018-02-24] MEDS: docusate sod 250mg capsule PO SCH ×2 (07:44→20:56)
[2018-02-24] MEDS: quetiapine 100mg tablet PO SCH ×3 (07:44→20:49)
[2018-02-24] MEDS: clonazePAM 1mg tablet PO SCH ×3 (07:44→20:50)
[2018-02-24] MEDS: levoTHYROXINE 100mcg tablet PO SCH (07:44)
[2018-02-24] MEDS: pantoprazole 40mg Tablet.DR PO SCH (07:44)
[2018-02-24] MEDS: atorvastatin 10mg tablet PO SCH (07:44)
[2018-02-24] MEDS: QUEtiapine 25mg tablet PO SCH ×2 (07:44→13:19)
[2018-02-24] MEDS: lisinopril 20mg tablet PO SCH (07:44)
[2018-02-24] MEDS: metFORMIN 500mg tablet PO SCH ×2 (07:49→17:46)
[2018-02-24 08:00] VITALS: BP 120/87
[2018-02-24] MEDS: nystatin 15 GM powder TP SCH ×3 (08:00→20:50)
[2018-02-24] MEDS: HYDROcodone/acetaminophen 5mg/325mg tablet PO PRN (13:18)
[2018-02-24] MEDS ORDERED: fluconazole 100mg tablet PO ONE (16:45)
[2018-02-24 17:19] LABS: CLARITY,URINE SLIGHTLY CLOUDY (Clear); COLOR,URINE YELLOW (Yellow); GLUCOSE, URINE NEGATIVE (Neg); KETONES,URINE TRACE mg/dl (Neg); LEUKOCYTE ESTERASE ,URINE SMALL (Neg); NITRITES, URINE NEGATIVE (Neg); OCCULT BLOOD,URINE NEGATIVE (Neg); PROTEIN,URINE NEGATIVE (Neg); UROBILINOGEN,URINE 0.2 E.U/dL (0.2-1.0)
[2018-02-24 17:20] LABS: UA COLLECTION TYPE CLN CATCH MIDSTREAM
[2018-02-24 17:26] LABS: MUCUS STRANDS MODERATE /LPF (Neg); SQUAMOUS EPITHELIAL CELL,UR MANY /LPF (FEW)
[2018-02-24 17:29] LABS: RBC,URINE 0-2 /HPF (0-2); TRANSITIONAL EPI CELLS,URINE FEW /HPF; WBC,URINE 20-30 /HPF (0-4)
[2018-02-24 17:30] LABS: BACTERIA,URINE 1+ /HPF (Neg)
[2018-02-24 19:54] VITALS: BP 102/81
[2018-02-24] MEDS: zolpidem 5mg tablet PO SCH (20:50)
[2018-02-24] MEDS: famotidine 20mg tablet PO SCH (20:50)
[2018-02-24 22:58] LABS: CLARITY,URINE SLIGHTLY CLOUDY (Clear); COLOR,URINE YELLOW (Yellow); GLUCOSE, URINE NEGATIVE (Neg); KETONES,URINE TRACE mg/dl (Neg); LEUKOCYTE ESTERASE ,URINE SMALL (Neg); NITRITES, URINE NEGATIVE (Neg); OCCULT BLOOD,URINE NEGATIVE (Neg); PROTEIN,URINE NEGATIVE (Neg); UA COLLECTION TYPE CLN CATCH MIDSTREAM; UROBILINOGEN,URINE 0.2 E.U/dL (0.2-1.0)
[2018-02-24 23:15] LABS: BACTERIA,URINE 1+ /HPF (Neg); MUCUS STRANDS FEW /LPF (Neg); RBC,URINE NONE SEEN /HPF (0-2); SQUAMOUS EPITHELIAL CELL,UR FEW /LPF (FEW); WBC CLUMPS,URINE FEW /HPF (NEGATIVE); WBC,URINE 20-30 /HPF (0-4)
[2018-02-25] MEDS: lisinopril 20mg tablet PO SCH (07:58)
[2018-02-25] MEDS: pantoprazole 40mg Tablet.DR PO SCH (07:59)
[2018-02-25] MEDS: topiramate 25mg tablet PO SCH ×2 (07:59→21:07)
[2018-02-25 08:00] VITALS: BP 101/76
[2018-02-25] MEDS: nystatin 15 GM powder TP SCH ×3 (08:00→22:24)
[2018-02-25] MEDS: QUEtiapine 25mg tablet PO SCH ×2 (08:02→16:33)
[2018-02-25] MEDS: oxcarbazepine 150mg tablet PO SCH ×2 (08:02→21:10)
[2018-02-25] MEDS: quetiapine 100mg tablet PO SCH ×3 (08:03→21:09)
[2018-02-25] MEDS: atorvastatin 10mg tablet PO SCH (08:03)
[2018-02-25] MEDS: clonazePAM 1mg tablet PO SCH ×3 (08:04→21:08)
[2018-02-25] MEDS: venlafaxine 37.5mg tablet PO SCH (08:04)
[2018-02-25] MEDS: levoTHYROXINE 100mcg tablet PO SCH (08:05)
[2018-02-25] MEDS: docusate sod 250mg capsule PO SCH ×2 (08:05→21:06)
[2018-02-25] MEDS: metFORMIN 500mg tablet PO SCH ×2 (08:05→17:59)
[2018-02-25] MEDS: HYDROcodone/acetaminophen 5mg/325mg tablet PO PRN (13:01)
[2018-02-25] MEDS: nitrofuran/nitrofuran macrocrysal 100 MG capsule PO SCH (17:59)
[2018-02-25 20:16] VITALS: BP 130/86
[2018-02-25] MEDS: famotidine 20mg tablet PO SCH (21:06)
[2018-02-25] MEDS: zolpidem 5mg tablet PO SCH (22:24)
[2018-02-26] MEDS: pantoprazole 40mg Tablet.DR PO SCH (07:22)
[2018-02-26] MEDS: metFORMIN 500mg tablet PO SCH (07:22)
[2018-02-26] MEDS: levoTHYROXINE 100mcg tablet PO SCH (07:22)
[2018-02-26 08:00] VITALS: BP 150/78
[2018-02-26] MEDS: nystatin 15 GM powder TP SCH ×2 (08:00→13:00)
[2018-02-26] MEDS: magnesium hydroxide 30ml (MOM) UD suspension PO PRN (08:15)
[2018-02-26] MEDS: lisinopril 20mg tablet PO SCH (08:16)
[2018-02-26] MEDS: oxcarbazepine 150mg tablet PO SCH (08:16)
[2018-02-26] MEDS: nitrofuran/nitrofuran macrocrysal 100 MG capsule PO SCH (08:16)
[2018-02-26] MEDS: HYDROcodone/acetaminophen 5mg/325mg tablet PO PRN (08:16)
[2018-02-26] MEDS: docusate sod 250mg capsule PO SCH (08:16)
[2018-02-26] MEDS: atorvastatin 10mg tablet PO SCH (08:17)
[2018-02-26] MEDS: QUEtiapine 25mg tablet PO SCH ×2 (08:17→13:41)
[2018-02-26] MEDS: quetiapine 100mg tablet PO SCH ×2 (08:17→13:41)
[2018-02-26] MEDS: clonazePAM 1mg tablet PO SCH ×2 (08:17→13:41)
[2018-02-26] MEDS: topiramate 25mg tablet PO SCH (08:19)
[2018-02-26] MEDS: venlafaxine 37.5mg tablet PO SCH (08:19)
[2018-02-26] MEDS ORDERED: QUET100T33 PO (11:44)
[2018-02-26] MEDS ORDERED: VENL150T3 PO (11:44)
[2018-02-26] MEDS ORDERED: TOPI100T18 PO (11:44)
[2018-02-26] MEDS ORDERED: PANT40TA4 PO (11:44)
[2018-02-26] MEDS ORDERED: TOPI25TA15 PO (11:44)
[2018-02-26] MEDS ORDERED: QUET25TA34 PO (11:44)
[2018-02-26] MEDS ORDERED: NITR100C11 PO (11:44)
[2018-02-26] MEDS ORDERED: NYSPWD TP (11:44)
[2018-02-26] MEDS ORDERED: QUET300T19 PO (11:44)
[2018-02-26] MEDS ORDERED: OXCA300T16 PO (11:44)
[2018-02-26] MEDS ORDERED: ZOLP10TA PO (11:44)
== END 2018-02-26 16:45 | disposition home or self-care (01) | DRG 885 ==
LOC: ADULT MH 13:11
PROVIDERS: ADMIT Psychiatry & Neurology Psychiatry; ATTEND Psychiatry & Neurology Psychiatry
PROC: 4A10X4Z Monitoring of Central Nervous Electrical Activity, External Approach (ICD-10-PCS; principal; 2018-02-17)
DX: F39 Unspecified mood [affective] disorder (principal); Z68.43 Body mass index [BMI] 50.0-59.9, adult; R45.851 Suicidal ideations; F31.9 Bipolar disorder, unspecified; F42.8 Other obsessive-compulsive disorder; F90.9 Attention-deficit hyperactivity disorder, unspecified type; F81.9 Developmental disorder of scholastic skills, unspecified; G93.0 Cerebral cysts; E11.9 Type 2 diabetes mellitus without complications; R35.0 Frequency of micturition; B37.2 Candidiasis of skin and nail; E66.01 Morbid (severe) obesity due to excess calories; E03.9 Hypothyroidism, unspecified; F43.10 Post-traumatic stress disorder, unspecified; G89.29 Other chronic pain; M54.89 Other dorsalgia; J45.909 Unspecified asthma, uncomplicated; F60.9 Personality disorder, unspecified; G40.909 Epilepsy, unspecified, not intractable, without status epilepticus; I10 Essential (primary) hypertension; G47.33 Obstructive sleep apnea (adult) (pediatric); Z56.0 Unemployment, unspecified; Z79.84 Long term (current) use of oral hypoglycemic drugs; Z79.890 Hormone replacement therapy; Z88.8 Allergy status to other drugs, medicaments and biological substances; Z79.899 Other long term (current) drug therapy; Z86.73 Personal history of transient ischemic attack (TIA), and cerebral infarction without residual deficits; Z82.49 Family history of ischemic heart disease and other diseases of the circulatory system; Z81.8 Family history of other mental and behavioral disorders; Z83.3 Family history of diabetes mellitus
CPT/HCPCS: 36415; 80061; 80156; 81001; 82948; 83036; 83690; 83735; 84443; 87070; 87088; 94760; 95816; J1170; J2270

== ENCOUNTER 2021-09-30 12:54 | Outpatient (CLI) | payer MEDICARE ==
[2021-09-30] VITALS (18 sets, daily range): BP systolic 44–187; BP diastolic 24–124
[~2021-09-30 12:54] MED LIST changes: -ALPR-624 PO; -HYDR-3566 PO; +HYDR-3567 PO; +LISI40TA13 PO; -LISI40TA4 PO; +NITR100C11 PO; +NYSPWD TP; -OMEP20TA5 PO; -ONDA8TAB9 PO; -OXCA600T9 PO; +PANT40TA54 PO; +QUET100T34 PO; +QUET25TA36 PO; -QUET300T2 PO; +QUET300T20 PO; -QUET50TA PO; +TOP100T PO; +TOPI25TA15 PO; -TOPI50TA24 PO; +VENL150T3 PO; +ZOLP10TA PO
== END 2021-09-30 23:59 | disposition home or self-care (01) ==
LOC: CARD DIAG 12:54
PROVIDERS: ATTEND Internal Medicine Interventional Cardiology
DX: R55 Syncope and collapse (principal)
CPT/HCPCS: 93660

== ENCOUNTER 2021-12-13 13:39 | Emergency (ER) | payer MEDICARE ==
[~2021-12-13] VITALS: Ht 172.7 cm; Wt 136.4 kg
[2021-12-13 14:03] VITALS: BP 139/85
[2021-12-13 18:08] LABS: MONOTEST NEGATIVE (Neg)
[2021-12-13] MEDS ORDERED: AMOX-117 PO (18:14)
[2021-12-15 11:52] LABS: EBV AB VCA, IGM <36.0 U/mL (0.0-35.9); EBV NUCLEAR ANTIGEN AB, IGG <18.0 U/mL (0.0-17.9)
== END 2021-12-13 18:27 | disposition home or self-care (01) ==
LOC: ER 13:40
DX: B08.4 Enteroviral vesicular stomatitis with exanthem (principal); J02.9 Acute pharyngitis, unspecified; H92.03 Otalgia, bilateral; I10 Essential (primary) hypertension; J45.909 Unspecified asthma, uncomplicated; E11.9 Type 2 diabetes mellitus without complications; F31.9 Bipolar disorder, unspecified; Z86.73 Personal history of transient ischemic attack (TIA), and cerebral infarction without residual deficits; Z56.0 Unemployment, unspecified; Z88.8 Allergy status to other drugs, medicaments and biological substances; Z79.2 Long term (current) use of antibiotics; Z79.899 Other long term (current) drug therapy
CPT/HCPCS: 36415; 86308; 86592; 86663; 86664; 86665; 87081; 87880; 99283

== ENCOUNTER 2022-07-21 00:07 | Emergency (ER) | payer MEDICARE ==
[~2022-07-21] VITALS: Ht 170.2 cm; Wt 145.0 kg
[2022-07-21 00:47] LABS: BASOPHILS % (AUTO) 0.2 % (0-1); EOSINOPHILS % (AUTO) 0.2 % (0-6); HEMATOCRIT 39.2 % (35.0-45.0); HEMOGLOBIN 13.2 g/dl (12.0-16.0); LYMPHOCYTES # (AUTO) 2.4 X10'3 (1.1-4.8); LYMPHOCYTES % (AUTO) 34.8 % (21-51); MEAN CORPUSCULAR HEMOGLOBIN 28.6 PG (27.0-31.0); MEAN CORPUSCULAR HGB CONC 33.8 g/dL (33.0-36.5); MEAN CORPUSCULAR VOLUME 84.7 FL (78-98); MEAN PLATELET VOLUME 7.8 FL (7.4-10.4); MONOCYTES # (AUTO) 0.4 X10'3 (0-0.9); MONOCYTES % (AUTO) 5.5 % (2-12); NEUTROPHILS # (AUTO) 4.1 X10'3 (1.8-7.7); NEUTROPHILS % (AUTO) 59.3 % (42-75); PLATELET COUNT 304 X10'3 (140-440); RED BLOOD COUNT 4.63 X10'6 (4.20-5.60); RED CELL DISTRIBUTION WIDTH 13.3 % (11.5-14.5); WHITE BLOOD COUNT 6.9 X10'3 (4.5-11.0)
[2022-07-21 01:04] LABS: ALANINE AMINOTRANSFERASE 40 U/L (12-78); ALBUMIN 3.6 G/DL (3.4-5.0); ALKALINE PHOSPHATASE 65 IU/L (46-116); ANION GAP 9 (8-16); ASPARTATE AMINO TRANSFERASE 27 U/L (10-37); BILIRUBIN,TOTAL 0.2 MG/DL (0.1-1.0); BLOOD UREA NITROGEN 13 MG/DL (7-18); BUN/CREATININE RATIO 24.5 (6.6-38.0); CALCIUM 9.2 MG/DL (8.5-10.1); CHLORIDE 101 MMOL/L (99-107); CREATININE 0.53 MG/DL (0.40-0.90); GLUCOSE 117 MG/DL (70-104); POTASSIUM 4.1 MMOL/L (3.5-5.1); SODIUM 133 MMOL/L (135-145); TOTAL CARBON DIOXIDE 23.5 MMOL/L (24-32); TOTAL PROTEIN 7.1 G/DL (6.4-8.2); eGFR > 90 ML/MIN
[2022-07-21 01:52] VITALS: BP 162/96
== END 2022-07-21 02:11 | disposition home or self-care (01) ==
LOC: ER 00:09
DX: I10 Essential (primary) hypertension (principal); R05.9 Cough, unspecified; E11.9 Type 2 diabetes mellitus without complications; E03.9 Hypothyroidism, unspecified; F31.9 Bipolar disorder, unspecified; Z88.8 Allergy status to other drugs, medicaments and biological substances; Z79.899 Other long term (current) drug therapy; Z79.1 Long term (current) use of non-steroidal anti-inflammatories (NSAID); Z79.2 Long term (current) use of antibiotics
CPT/HCPCS: 36415; 71045; 80053; 83880; 84145; 84484; 85025; 93005; 99285

== ENCOUNTER 2022-09-07 11:40 | Emergency (ER) | payer MEDICARE ==
[~2022-09-07] VITALS: Ht 170.2 cm; Wt 141.8 kg
[2022-09-07 12:10] LABS: BASOPHILS % (AUTO) 0.2 % (0-1); EOSINOPHILS # (AUTO) 0.1 X10'3 (0-0.9); EOSINOPHILS % (AUTO) 1.1 % (0-6); HEMATOCRIT 42.4 % (35.0-45.0); HEMOGLOBIN 14.2 g/dl (12.0-16.0); LYMPHOCYTES # (AUTO) 2.9 X10'3 (1.1-4.8); LYMPHOCYTES % (AUTO) 37.7 % (21-51); MEAN CORPUSCULAR HEMOGLOBIN 28.7 PG (27.0-31.0); MEAN CORPUSCULAR HGB CONC 33.5 g/dL (33.0-36.5); MEAN CORPUSCULAR VOLUME 85.5 FL (78-98); MEAN PLATELET VOLUME 7.1 FL (7.4-10.4); MONOCYTES # (AUTO) 0.5 X10'3 (0-0.9); MONOCYTES % (AUTO) 6.3 % (2-12); NEUTROPHILS # (AUTO) 4.2 X10'3 (1.8-7.7); NEUTROPHILS % (AUTO) 54.7 % (42-75); PLATELET COUNT 390 X10'3 (140-440); RED BLOOD COUNT 4.96 X10'6 (4.20-5.60); RED CELL DISTRIBUTION WIDTH 13.7 % (11.5-14.5); WHITE BLOOD COUNT 7.7 X10'3 (4.5-11.0)
[2022-09-07 12:32] LABS: URINE HCG NEGATIVE (NEG)
[2022-09-07 12:34] LABS: ALANINE AMINOTRANSFERASE 62 U/L (12-78); ALBUMIN 3.9 G/DL (3.4-5.0); ALBUMIN/GLOBULIN RATIO 0.9 (1.1-1.5); ALKALINE PHOSPHATASE 79 IU/L (46-116); ANION GAP 6 (8-16); ASPARTATE AMINO TRANSFERASE 43 U/L (10-37); BILIRUBIN,TOTAL 0.2 MG/DL (0.1-1.0); BLOOD UREA NITROGEN 13 MG/DL (7-18); BUN/CREATININE RATIO 16.9 (10.0-20.0); CALCIUM 9.7 MG/DL (8.5-10.1); CHLORIDE 103 MMOL/L (99-107); CREATININE 0.77 MG/DL (0.40-0.90); GLUCOSE 107 MG/DL (70-104); LIPASE 101 U/L (73-393); POTASSIUM 4.4 MMOL/L (3.5-5.1); SODIUM 139 MMOL/L (135-145); TOTAL CARBON DIOXIDE 30.1 MMOL/L (24-32); TOTAL PROTEIN 8.1 G/DL (6.4-8.2); eGFR 79 ML/MIN
[2022-09-07 12:38] LABS: CLARITY,URINE CLEAR (Clear); COLOR,URINE YELLOW (Yellow); GLUCOSE, URINE NEGATIVE (Neg); KETONES,URINE NEGATIVE (Neg); LEUKOCYTE ESTERASE ,URINE NEGATIVE (Neg); NITRITES, URINE NEGATIVE (Neg); OCCULT BLOOD,URINE NEGATIVE (Neg); PROTEIN,URINE NEGATIVE (Neg); UROBILINOGEN,URINE 0.2 E.U/dL (0.2-1.0)
[2022-09-07 12:44] LABS: UA COLLECTION TYPE CLN CATCH MIDSTREAM
[2022-09-07] MEDS ORDERED: HYDROcodone/acetaminophen 10/325mg tab PO ONE (18:15)
[2022-09-07] MEDS ORDERED: scopolamine 1mg/72 hr patch TD ONE (18:20)
[2022-09-07 18:55] VITALS: BP 185/86
[2022-09-07] MEDS ORDERED: OXYC-145 PO (19:08)
== END 2022-09-07 19:39 | disposition home or self-care (01) ==
LOC: ER 11:40
DX: M54.59 Other low back pain (principal); I10 Essential (primary) hypertension; J45.909 Unspecified asthma, uncomplicated; E11.9 Type 2 diabetes mellitus without complications; F31.9 Bipolar disorder, unspecified; Z59.00 Homelessness unspecified; Z88.8 Allergy status to other drugs, medicaments and biological substances; Z79.899 Other long term (current) drug therapy; Z79.1 Long term (current) use of non-steroidal anti-inflammatories (NSAID); Z79.2 Long term (current) use of antibiotics
CPT/HCPCS: 36415; 76770; 80053; 81003; 81025; 83690; 85025; 99284

== ENCOUNTER 2022-10-10 16:47 | Emergency (ER) | payer MEDICARE ==
[~2022-10-10] VITALS: Ht 170.2 cm; Wt 136.4 kg
[~2022-10-10 16:47] MED LIST changes: +OXYC-145 PO
[2022-10-10 17:56] LABS: BASOPHILS # (AUTO) 0.1 X10'3 (0-0.2); BASOPHILS % (AUTO) 0.7 % (0-1); EOSINOPHILS # (AUTO) 0.1 X10'3 (0-0.9); HEMATOCRIT 40.8 % (35.0-45.0); HEMOGLOBIN 13.7 g/dl (12.0-16.0); LYMPHOCYTES # (AUTO) 2.5 X10'3 (1.1-4.8); LYMPHOCYTES % (AUTO) 36.1 % (21-51); MEAN CORPUSCULAR HEMOGLOBIN 28.7 PG (27.0-31.0); MEAN CORPUSCULAR HGB CONC 33.6 g/dL (33.0-36.5); MEAN CORPUSCULAR VOLUME 85.5 FL (78-98); MEAN PLATELET VOLUME 8.6 FL (7.4-10.4); MONOCYTES # (AUTO) 0.5 X10'3 (0-0.9); MONOCYTES % (AUTO) 7.8 % (2-12); NEUTROPHILS # (AUTO) 3.8 X10'3 (1.8-7.7); NEUTROPHILS % (AUTO) 53.4 % (42-75); PLATELET COUNT 370 X10'3 (140-440); RED BLOOD COUNT 4.77 X10'6 (4.20-5.60); RED CELL DISTRIBUTION WIDTH 13.2 % (11.5-14.5)
[2022-10-10 18:05] LABS: ALANINE AMINOTRANSFERASE 20 U/L (12-78); ALBUMIN 3.9 G/DL (3.4-5.0); ALBUMIN/GLOBULIN RATIO 0.9 (1.1-1.5); ALKALINE PHOSPHATASE 80 IU/L (46-116); ANION GAP 13 (8-16); ASPARTATE AMINO TRANSFERASE 21 U/L (10-37); BILIRUBIN,TOTAL 0.2 MG/DL (0.1-1.0); BLOOD UREA NITROGEN 14 MG/DL (7-18); BUN/CREATININE RATIO 17.3 (10.0-20.0); CALCIUM 9.5 MG/DL (8.5-10.1); CHLORIDE 101 MMOL/L (99-107); CREATININE 0.81 MG/DL (0.40-0.90); GLUCOSE 112 MG/DL (70-104); LIPASE 110 U/L (73-393); POTASSIUM 3.8 MMOL/L (3.5-5.1); SODIUM 139 MMOL/L (135-145); TOTAL CARBON DIOXIDE 25.4 MMOL/L (24-32); TOTAL PROTEIN 8.1 G/DL (6.4-8.2); eGFR 75 ML/MIN
[2022-10-10] MEDS ORDERED: normal saline 1000ML IV soln IVB ONE (18:20)
[2022-10-10] MEDS ORDERED: metoclopramide 5 mg/ml inj IV ONE (18:20)
[2022-10-10] MEDS ORDERED: iohexol 300mg/ml 100ml inj. ONE (18:44)
--- NOTE | 2022-10-10 20:56 | NUR ---
general assessment reviewed.
[2022-10-10 22:45] VITALS: BP 152/86
[2022-10-10] MEDS ORDERED: meclizine 12.5mg tablet PO ONE (22:45)
[2022-10-10] MEDS ORDERED: proCHLORperazine 10 MG/2 ml inj IV ONE (22:45)
[2022-10-10 23:05] LABS: CLARITY,URINE SLIGHTLY CLOUDY (Clear); COLOR,URINE YELLOW (Yellow); GLUCOSE, URINE NEGATIVE (Neg); KETONES,URINE 15 mg/dl (Neg); LEUKOCYTE ESTERASE ,URINE NEGATIVE (Neg); NITRITES, URINE NEGATIVE (Neg); OCCULT BLOOD,URINE NEGATIVE (Neg); PROTEIN,URINE NEGATIVE (Neg); UROBILINOGEN,URINE 0.2 E.U/dL (0.2-1.0)
[2022-10-10 23:11] LABS: UA COLLECTION TYPE NON-SPECIFIED
[2022-10-10 23:12] LABS: BACTERIA,URINE FEW /HPF (Neg); SQUAMOUS EPITHELIAL CELL,UR MODERATE /LPF (FEW)
[2022-10-10 23:13] LABS: TRANSITIONAL EPI CELLS,URINE FEW /HPF; WBC,URINE 0-4 /HPF (0-4)
[2022-10-10] MEDS ORDERED: HYDROcodone/acetaminophen 5mg/325mg tablet PO ONE (23:30)
[2022-10-11] MEDS ORDERED: METO5TAB85 PO (00:08)
--- NOTE | 2022-10-11 00:32 | NUR ---
iv dc'd pt being discharged. dressing applied
== END 2022-10-11 00:33 | disposition home or self-care (01) ==
LOC: ER 16:48
DX: R11.2 Nausea with vomiting, unspecified (principal); R53.1 Weakness; R42 Dizziness and giddiness; R10.9 Unspecified abdominal pain; I11.9 Hypertensive heart disease without heart failure; J45.909 Unspecified asthma, uncomplicated; E11.9 Type 2 diabetes mellitus without complications; F31.9 Bipolar disorder, unspecified; Z56.0 Unemployment, unspecified; Z88.8 Allergy status to other drugs, medicaments and biological substances; Z79.899 Other long term (current) drug therapy
CPT/HCPCS: 36415; 71045; 74177; 80053; 81001; 83690; 84484; 85025; 96361; 96374; 96375; 99285; J0780; J2765; J3490; J7030; J8597; Q9967